=== PATIENT | female | born 1995 | race Caucasian/White ===

== ENCOUNTER 2019-08-11 22:14 | Inpatient (IN) ==
[2019-08-11] MEDS ORDERED: MEPERIDINE 50 MG/1 ML VIAL IV PRN (22:28)
[2019-08-11] MEDS ORDERED: LACTATED RINGERS 1,000 ML IV SCH (22:30)
[2019-08-11 22:51] LABS: Basophils % 0.2 % (0.0-0.8); Eosinophils # 0.1 10*3/uL (0.0-0.87); Eosinophils % 1.2 % (0.00-10.9); Hematocrit 34.3 VOL% (35.7-47.0); Hemoglobin 10.8 GM/DL (12.0-16.0); Lymphocytes # 2.3 10*3/uL (1.4-4.0); Lymphocytes % 22.6 % (21.3-54.2); Mean Corpuscular HGB Conc 31.5 GM/DL (32-36); Mean Corpuscular Volume 85.5 FL (87-102); Monocytes % 7.1 % (1.7-12.7); Neutrophils % 67.9 % (38.7-73.9); Platelet Count 127 T/CUMM (130-400); Red Blood Count 4.01 MC/CUMM (3.8-5.5); Red Cell Distribution Width 16.9 % (9.3-17.3); White Blood Count 10.3 T/CUMM (4-12)
[2019-08-11] MEDS: ACETAMINOPHEN 325 MG TABLET PO PRN (23:04)
[2019-08-11 23:20] LABS: Lymphocytes 30 % (20-55); Segmented Neutrophils 67 % (50-85); Total Cells Counted 100
[2019-08-11 23:21] LABS: Hypochromasia Slight; Microcytosis 2+; Platelet Estimate Normal
[2019-08-11 23:23] LABS: Polychromasia Few
[2019-08-12] MEDS: BUTORPHANOL 2 MG/ML VIAL IV PRN ×2 (00:10→04:21)
[2019-08-12] MEDS: ONDANSETRON 4 MG/2 ML VIAL IV PRN ×2 (01:10→11:34)
[2019-08-12] MEDS ORDERED: PROMETHAZINE 25 MG/1 ML VIAL IM PRN (08:13)
[2019-08-12] MEDS ORDERED: diphenhydrAMINE 50 MG/1 ML VIAL IV PRN (08:13)
[2019-08-12] MEDS ORDERED: ePHEDrine 50 MG/ML AMP IV PRN (08:13)
[2019-08-12] MEDS ORDERED: NALOXONE 0.4 MG/ML VIAL IV PRN (08:13)
[2019-08-12] MEDS ORDERED: hydrOXYzine HCL 25 MG/1 ML VIAL IM PRN (08:13)
[2019-08-12] MEDS ORDERED: CITRIC ACID/SODIUM CITRATE 30 ML UDCUP PO ONE (08:14)
[2019-08-12] MEDS ORDERED: LACTATED RINGERS 1,000 ML IV ONE (08:14)
[2019-08-12] MEDS ORDERED: FAMOTIDINE 20 MG/2 ML VIAL IV ONE (08:14)
[2019-08-12] MEDS ORDERED: fentaNYL 2 MCG/ROPIV 0.2% EPID 100 ML EPIDURAL SCH (08:30)
[2019-08-12] MEDS ORDERED: OXYTOCIN/LR 20 UNIT/1,000 ML BAG IV SCH (08:30)
[2019-08-12] MEDS ORDERED: LACTATED RINGERS 1,000 ML IV SCH (08:30)
[2019-08-12 12:32] LABS: Apearance,Urine CLEAR (Clear); Bacteria,Urine Occasional /HPF (Few); Bilirubin,Urine Negative (Negative); Blood, Urine Small mg/dL (Negative); Glucose,Urine (UA) Negative (Negative); Ketones,Urine Negative (Negative); Mucus,Urine Occasional /LPF (Occasional); Nitrite,Urine Negative (Negative); Protein,Urine 100 MG/DL; RBC,Urine <1 /HPF (0-4); Squamous Epithelial Cell,Urine Occasional /HPF (0-10); Urine Color Straw (Yellow); Urine Urobilinogen < 2.0 EU/DL (0.2-1.0); WBC,Urine 1 /HPF (0-6)
[2019-08-12] MEDS ORDERED: miSOPROStoL 200 MCG TABLET ONE (13:27)
[2019-08-12] MEDS ORDERED: METHYLERGONOVINE 0.2 MG/1 ML AMP ONE (13:28)
[2019-08-12] MEDS ORDERED: OXYTOCIN/LR 20 UNIT/1,000 ML BAG IV ONE ×2 (13:28→14:02)
[2019-08-12] MEDS ORDERED: CARBOPROST TROMETHAMINE 250 MCG/ML AMP IM ONE (13:28)
[2019-08-12] MEDS ORDERED: TRANEXAMIC ACID 1,000 MG/10 ML VIAL ONE (13:28)
[2019-08-12] MEDS ORDERED: BISACODYL 10 MG SUPP RECTAL PRN (14:02)
[2019-08-12] MEDS ORDERED: LANOLIN 50% CREAM 0.3 OZ TUBE TOP PRN (14:02)
[2019-08-12] MEDS ORDERED: ACETAMINOPHEN 325 MG TABLET PO PRN (14:02)
[2019-08-12] MEDS ORDERED: WITCH HAZEL PADS 100/JAR TOP PRN (14:02)
[2019-08-12] MEDS ORDERED: MEASLES/MUMPS/RUBELLA VACCINE 0.5 ML VIAL SUBCUT ONE (14:02)
[2019-08-12] MEDS ORDERED: BENZOCAINE 20%/MENTHOL 0.5% SPRAY 56 GM CAN TOP PRN (14:02)
[2019-08-12] MEDS ORDERED: ONDANSETRON 4 MG/2 ML VIAL IV PRN (14:02)
[2019-08-12] MEDS ORDERED: RHO(D) IMMUNE GLOBULIN 300 MCG SYRINGE IM ONE (14:02)
[2019-08-12] MEDS ORDERED: DIPH/TET/ACEL PERT BOOSTER VACCINE 0.5 ML VIAL IM ONE (14:02)
[2019-08-12] MEDS ORDERED: HYDROCORTISONE 2.5% RECTAL CREAM 30 GM TUBE TOP PRN (14:02)
[2019-08-12] MEDS ORDERED: ACETAMINOPHEN 500 MG TABLET PO ONE (14:14)
[2019-08-12] MEDS: ACETAMINOPHEN 325 MG TABLET PO PRN (14:23)
[2019-08-12] MEDS: IBUPROFEN 800 MG TABLET PO PRN ×2 (14:23→21:20)
[2019-08-12] MEDS: oxyCODONE/ACETAMINOPHEN 5-325 MG TABLET PO PRN ×2 (17:33→22:34)
[2019-08-12] MEDS: DOCUSATE SODIUM 100 MG CAPSULE PO SCH (21:20)
[2019-08-13] MEDS: IBUPROFEN 800 MG TABLET PO PRN ×3 (02:50→20:17)
[2019-08-13 04:47] LABS: Basophils % 0.3 % (0.0-0.8); Eosinophils # 0.2 10*3/uL (0.0-0.87); Eosinophils % 1.3 % (0.00-10.9); Hematocrit 29.2 VOL% (35.7-47.0); Immature Granulocytes % 0.5 %; Immature Granulocytes Absolute 0.06 #; Lymphocytes # 2.4 10*3/uL (1.4-4.0); Lymphocytes % 21.3 % (21.3-54.2); Mean Corpuscular HGB Conc 30.8 GM/DL (32-36); Mean Corpuscular Volume 87.4 FL (87-102); Monocytes % 6.3 % (1.7-12.7); Neutrophils % 70.3 % (38.7-73.9); Platelet Count 107 T/CUMM (130-400); Red Blood Count 3.34 MC/CUMM (3.8-5.5); Red Cell Distribution Width 16.9 % (9.3-17.3); White Blood Count 11.4 T/CUMM (4-12)
[2019-08-13 05:12] LABS: Hypochromasia 1+; Microcytosis 1+; Platelet Estimate Decreased; Polychromasia Slight
[2019-08-13] MEDS: oxyCODONE/ACETAMINOPHEN 5-325 MG TABLET PO PRN (09:06)
[2019-08-13] MEDS: ONDANSETRON 4 MG/2 ML VIAL IV PRN (11:44)
[2019-08-13] MEDS: ACETAMINOPHEN 325 MG TABLET PO PRN ×2 (16:13→23:22)
[2019-08-13] MEDS: DOCUSATE SODIUM 100 MG CAPSULE PO SCH ×2 (16:18→21:18)
[2019-08-13] MEDS ORDERED: MAGNESIUM HYDROXIDE SUSP 30 ML UDCUP PO PRN (21:45)
[2019-08-14] MEDS: ACETAMINOPHEN 325 MG TABLET PO PRN (03:48)
[2019-08-14] MEDS: IBUPROFEN 800 MG TABLET PO PRN ×2 (05:35→12:27)
[2019-08-14] MEDS ORDERED: CYCLOBENZAPRINE 10 MG TABLET PO PRN (07:49)
[2019-08-14] MEDS: DOCUSATE SODIUM 100 MG CAPSULE PO SCH (08:05)
[2019-08-14 12:22] VITALS: BP 115/73
[2019-08-14] MEDS: oxyCODONE/ACETAMINOPHEN 5-325 MG TABLET PO PRN (12:27)
== END 2019-08-14 14:00 | disposition home or self-care (01) | DRG 560 ==
LOC: N.LDOUT 22:14 → N.LD 22:27 → N.OB 08-12 17:25
PROVIDERS: ADMIT Specialist; ATTEND Specialist